=== PATIENT | female | born 1945 | race Hispanic/Latino ===

== ENCOUNTER 2016-10-26 12:37 | Emergency (ER) | payer MEDICARE, BC ==
[2016-10-26 12:43] VITALS: BMI 34.0
[2016-10-26 12:47] VITALS: TEMP 98.5
--- NOTE | 2016-10-26 13:31 | ED PDOC ---
Arrival/HPI - General Chief Complaint: Trauma Time Seen by Provider: 10/26/16 13:14 Historian: Patient - History of Present Illness Narrative History of Present Illness (Text): 10/26/16 13:28 A 71 year old female, whose past medical history includes diabetes, hyperlipidemia and hypothyroidism, presents to the emergency department complaining of right shoulder pain after a mechanical fall 1 hour prior to arrival. Patient notes the pain is worse with movement. Patient reports she was going up the stairs and tripped landing on her right shoulder and left knee. Patient denies any loss of consciousness, head trauma, headache, dizziness, neck pain, back pain, fever, chills, nausea, vomiting, diarrhea, abdominal pain , chest pain, shortness of breath or any other complaints. PMD: Dr. Pérez Time/Duration: 1 hour (COSMETOLOGY INSTRUCTOR) Symptom Course: Unchanged Quality: Other Context: Home Past Medical History - Provider Review Nursing Documentation Reviewed: Yes - Cardiac Hx Hypertension: Yes - Endocrine/Metabolic Hx Diabetes Mellitus Type 2: Yes Hx Hypothyroidism: Yes - Psychiatric Hx Substance Use: No - Surgical History Hx Appendectomy: Yes Hx Hysterectomy: Yes (partial) - Anesthesia Hx Anesthesia: No Family/Social History - Physician Review Nursing Documentation Reviewed: Yes Family/Social History: No Known Family HX Smoking Status: Never Smoked Hx Alcohol Use: No Hx Substance Use: No Allergies/Home Meds Allergies/Adverse Reactions: Allergies Sulfa (Sulfonamide Antibiotics) Allergy (Verified 10/26/16 12:43) ANAPHYLAXIS Home Medications: Home Meds Medication Instructions Recorded Confirmed Aspirin [Adult Low Dose Aspirin EC] 81 mg PO DAILY 10/26/16 10/26/16 Atorvastatin [Lipitor] 10 mg PO DIN 10/26/16 10/26/16 Fenofibrate Nanocrystallized 145 mg PO DAILY 10/26/16 10/26/16 [Tricor] Insulin Glargine,Hum.rec.anlog 24 unit SQ HS 10/26/16 10/26/16 [Lantus] Insulin Lispro [humALOG] 0 unit SC ACHS 10/26/16 10/26/16 Levothyroxine [Synthroid] 0.075 mg PO DAILY 10/26/16 10/26/16 metFORMIN [glucOPHAGE] 1,000 mg PO BID 10/26/16 10/26/16 Review of Systems - Physician Review All systems were reviewed & negative as marked: Yes - Review of Systems Constitutional: absent: Fevers, Night Sweats Respiratory: absent: SOB Cardiovascular: absent: Chest Pain Gastrointestinal: absent: Abdominal Pain, Diarrhea, Nausea, Vomiting Musculoskeletal: Other (Right shoulder pain). absent: Back Pain, Neck Pain Neurological: absent: Headache, Dizziness Physical Exam Vital Signs Reviewed: Yes Vital Signs Temp Pulse Resp BP Pulse Ox 10/26/16 16:36 75 18 148/79 97 10/26/16 15:14 79 18 151/81 H 97 10/26/16 14:38 87 17 151/80 H 97 10/26/16 12:47 98.5 F 89 17 174/95 H 98 Temperature: Afebrile Blood Pressure: Hypertensive Pulse: Regular Respiratory Rate: Normal Appearance: Positive for: Well-Appearing, Non-Toxic, Comfortable Pain Distress: None Mental Status: Positive for: Alert and Oriented X 3 Finger Stick Blood Glucose: 112 - Systems Exam Head: Present: Atraumatic, Normocephalic Pupils: Present: PERRL Extroacular Muscles: Present: EOMI Conjunctiva: Present: Normal Mouth: Present: Moist Mucous Membranes Neck: Present: Normal Range of Motion. No: MIDLINE TENDERNESS Respiratory/Chest: Present: Clear to Auscultation, Good Air Exchange. No: Respiratory Distress, Accessory Muscle Use Cardiovascular: Present: Regular Rate and Rhythm, Normal S1, S2. No: Murmurs Abdomen: Present: Normal Bowel Sounds. No: Tenderness, Distention, Peritoneal Signs Back: Present: Normal Inspection. No: Midline Tenderness Upper Extremity: Present: Normal Inspection, Normal ROM (EXPECT limited ROM in right shoulder secondary to pain), NORMAL PULSES, Tenderness (to right lateral anterior shoulder and proximal humerus), Other (Sensory intact). No: Cyanosis, Edema Lower Extremity: Present: Normal Inspection, NORMAL PULSES, Normal ROM, Neurovascularly Intact. No: Edema, CALF TENDERNESS, Tenderness, Swelling, Deformity, Temperature Abnormalties Neurological: Present: GCS=15, CN II-XII Intact, Speech Normal Skin: Present: Warm, Dry, Normal Color. No: Rashes Psychiatric: Present: Alert, Oriented x 3, Normal Insight, Normal Concentration Medical Decision Making ED Course and Treatment: 10/26/16 13:28 Impression: A 71 year old female with right shoulder pain after fall. On exam, tenderness to right lateral anterior shoulder with limited ROM secondary to pain. Differential Diagnosis included but are not limited to: Mechanical fall, rule out fracture Plan: -- Right shoulder xray -- Right humerus xray -- Toradol -- Sling placed right shoulder -- Reassess and disposition Progress Notes: Report Date : 10/26/2016 14:26:16 PROCEDURE: Radiographs of the Right Shoulder Dictator : Trae Floyd MD IMPRESSION: There is a displaced fracture of the right humeral head. There is a displaced fracture the parallels the surface of the humeral head. There is also an obliquely oriented linear fracture through the neck of the humerus. Report Date : 10/26/2016 14:27:48 PROCEDURE: Right humerus Dictator : Trae Floyd MD IMPRESSION: Fracture humeral head. Remainder of humerus unremarkable Patient requested Dr. Alston who came to see patient. He recommended pain control, sling and to sleep sitting up. He also states to have her f/u in his office in 10days. Patient is comfortable with plan. She will make sure to follow up with him and follow discharge instructions also provided by Dr. Alston - Lab Interpretations Lab Results: Lab Results 10/26/16 13:04: POC Glucose (mg/dL) 112 H - RAD Interpretation Radiology Orders: 10/26/16 13:31 HUMERUS RIGHT [RAD] Stat SHOULDER RIGHT [RAD] Stat Steel Placer: Radiologist - Medication Orders Current Medication Orders: Discontinued Medications Ketorolac Tromethamine (Toradol) 60 mg IM STAT STA Stop: 10/26/16 13:31 Last Admin: 10/26/16 13:34 Dose: 60 mg Ketorolac Tromethamine (Toradol) Confirm Administered Dose 60 mg .ROUTE .STK- MED ONE Stop: 10/26/16 13:35 Last Admin: 10/26/16 13:36 Dose: - Scribe Statement The provider has reviewed the documentation as recorded by the Markos Patel Provider Scribe Attestation: All medical record entries made by the Scribe were at my direction and personally dictated by me. I have reviewed the chart and agree that the record accurately reflects my personal performance of the history, physical exam, medical decision making, and the department course for this patient. I have also personally directed, reviewed, and agree with the discharge instructions and disposition. Disposition/Present on Arrival - Present on Arrival Any Indicators Present on Arrival: No History of DVT/PE: No History of Uncontrolled Diabetes: No Urinary Catheter: No History of Decub. Ulcer: No History Surgical Site Infection Following: None - Disposition Have Diagnosis and Disposition been Completed?: Yes Diagnosis: Humerus fracture Disposition: HOME/ ROUTINE Disposition Time: 16:42 Patient Plan: Discharge Condition: IMPROVED Discharge Instructions (ExitCare): Arm Fracture in Adults (ED) Additional Instructions: Ms Tolentino, thank you for letting us take care of you today. Your provider was Dr. Sanchez. You were treated for Humerus Fracture The emergency medical care you received today was directed at your acute symptoms. If you were prescribed any medication, please fill it and take as directed. It may take several days for your symptoms to resolve. Return to the Emergency Department if your symptoms worsen, do not improve, or if you have any other problems. Please contact your doctor or call one of the physicians/clinics you have been referred to that are listed on the Patient Visit Information form that is included in your discharge packet. Bring any paperwork you were given at discharge with you along with any medications you are taking to your follow up visit. Our treatment cannot replace ongoing medical care by a primary care provider (PCP) outside of the emergency department. Make sure to sleep sitting up and follow up with Dr. Funes in 10 days. Thank you for allowing the [facility] team to be part of your care today. If you had an X-Ray or CT scan: A Radiologist will review the ED reading if any change in treatment is needed we will contact you. If you had a blood, urine, or wound culture: It will take several days for the results, if any change in treatment is needed we will contact you. If you had an STI test: It will take 48 hours for the results. Please call after 1 week if you have not heard back. Prescriptions: Acetaminophen with Codeine [Tylenol with Codeine #3 Tablet] 1 each PO Q6 #20 tablet Referrals: Trae Olea DO [Staff Provider] - Follow up with primary Piter Pérez MD [Primary Care Provider] - Follow up with primary Forms: [employer] (Setswana)
--- NOTE | 2016-10-26 14:28 | RAD ---
PROCEDURE: Radiographs of the Right Shoulder HISTORY: fall r/o fx COMPARISON: 11/15/2012 FINDINGS: BONES: There is a displaced fracture of the right humeral head. There is a displaced fracture the parallels the surface of the humeral head. There is also an obliquely oriented linear fracture through the neck of the humerus. JOINTS: Normal. Glenohumeral and acromioclavicular joints preserved. No osteoarthritis. SOFT TISSUES: Normal. OTHER FINDINGS: None. IMPRESSION: There is a displaced fracture of the right humeral head. There is a displaced fracture the parallels the surface of the humeral head. There is also an obliquely oriented linear fracture through the neck of the humerus.
--- NOTE | 2016-10-26 14:29 | RAD ---
PROCEDURE: Right humerus HISTORY: fall r/o fx COMPARISON: TECHNIQUE: Two views FINDINGS: There is a displaced fracture of the right humeral head. There is a displaced fracture the parallels the surface of the humeral head. There is also an obliquely oriented linear fracture through the neck of the humerus. IMPRESSION: Fracture humeral head. Remainder of humerus unremarkable
[2016-10-26 15:12] VITALS: O2SAT 97
[2016-10-26 15:14] VITALS: RESP 18
[2016-10-26 16:37] VITALS: BP 148/79; PULSE 75
--- NOTE | 2016-10-27 08:07 | CON ---
DATE: 10/26/2016 A 71-year-old female who slipped and fell going up the stairs and landed on her right shoulder today, this morning. X-ray shows an impacted fracture of the surgical neck with a greater tuberosity fract ure not proximally migrated over 0.5 cm just slightly posterior. The patient is going to be treated conservatively with a collar and a cuff with instructions to sleep sitting up in a recliner, not to p ut weight on the arm and no range of motion of the arm. I will see her in the office in 10 days and will follow her with x-rays. Understands that surgery the risks outweigh the benefits. I will see h er in the office. FINAL DIAGNOSIS: Two-part fracture, right proximal humerus at the surgical neck and greater tuberosi ty mildly displaced. Trae Olea DO cc: [id number] TT: 10/26/2016 17:20:29 Confirmation # [id number] Dictation # [id number]
== END 2016-10-26 16:42 | disposition home or self-care (01) ==
LOC: ED 12:37
DX: S42.221A 2-part displaced fracture of surgical neck of right humerus, initial encounter for closed fracture (principal); W01.0XXA Fall on same level from slipping, tripping and stumbling without subsequent striking against object, initial encounter; Y93.89 Activity, other specified; Y92.89 Other specified places as the place of occurrence of the external cause; I10 Essential (primary) hypertension; E11.9 Type 2 diabetes mellitus without complications; E78.5 Hyperlipidemia, unspecified
CPT/HCPCS: 29240; 73030; 73060; 82948; 96372; 99285; J1885